=== PATIENT | female | born 1975 | race Caucasian/White ===

== ENCOUNTER → 2021-05-15 | Outpatient (CLI) | payer MEDICARE, OTHER ==
[2021-05-15 19:20] LABS: Basophils # (A) 0.03 X 10*3/uL (0.00-0.10); Basophils % (A) 0.5 %; Eosinophils # (A) 0.06 X 10*3/uL (0.04-0.35); Eosinophils % (A) 0.9 %; HCT 44.9 % (37.2-46.3); Lymphocytes % (A) 37.6 %; MCH 29.7 pg (27.0-32.0); MCHC 31.2 g/dL (32.0-37.0); MCV 95.1 fL (80.0-97.0); Mean Platelet Volume 11.8 fL (9.5-12.2); Monocytes # (A) 0.53 X 10*3/uL (0.20-1.00); Neutrophils # (A) 3.52 X 10*3/uL (1.80-7.70); Neutrophils % (A) 52.8 %; Platelet Count 213 X 10*3/uL (140-440); RBC 4.72 X 10*6/uL (4.10-5.20); RDW 12.7 % (11.5-14.5); WBC 6.65 X 10*3/uL (4.50-10.00)
[2021-05-16 00:18] LABS: Valproic Acid (Depakene) 53.7 ug/mL (50.0-100.0)
[2021-05-16 06:13] LABS: Levetiracetam (Keppra) 3.6 ug/mL (3.0-60.0)
[2021-05-16 07:08] LABS: Lamotrigine (Lamictal) 6.6 ug/mL (2.0-15.0)
[2021-05-19 08:09] LABS: Topiramate 3.1 ug/mL (2.0-20.0)
== END | disposition home or self-care (01) ==
LOC: LABWHC1 08:11
PROVIDERS: ATTEND Psychiatry & Neurology Neurology
DX: G40.209 Localization-related (focal) (partial) symptomatic epilepsy and epileptic syndromes with complex partial seizures, not intractable, without status epilepticus (principal)
CPT/HCPCS: 36415; 80164; 80175; 80177; 80201; 84450; 84460; 85025

== ENCOUNTER → 2022-02-11 | Outpatient (CLI) | payer MEDICARE, OTHER ==
[2022-02-11 14:30] LABS: Basophils # (A) 0.03 X 10*3/uL (0.00-0.10); Basophils % (A) 0.5 %; Eosinophils # (A) 0.05 X 10*3/uL (0.04-0.35); Eosinophils % (A) 0.8 %; Immature Grans, Automated 0.2 %; Lymphocytes # (A) 2.12 X 10*3/uL (0.90-5.00); Lymphocytes % (A) 32.5 %; MCH 28.6 pg (27.0-32.0); MCHC 31.1 g/dL (32.0-37.0); Mean Platelet Volume 11.8 fL (9.5-12.2); Monocytes # (A) 0.47 X 10*3/uL (0.20-1.00); Monocytes % (A) 7.2 %; NRBC Per 100 WBC 0 /100 WBCS (0.0-0.0); Neutrophils # (A) 3.84 X 10*3/uL (1.80-7.70); Neutrophils % (A) 58.8 %; Platelet Count 212 X 10*3/uL (140-440); RBC 4.89 X 10*6/uL (4.10-5.20); RDW 12.7 % (11.5-14.5); WBC 6.52 X 10*3/uL (4.50-10.00)
[2022-02-11 18:08] LABS: ALT 26 U/L (8-44); AST 13 U/L (13-35)
[2022-02-11 18:09] LABS: Chol/HDL Ratio 4.08 Ratio; LDL Cholesterol,Calculated 82.9 mg/dL (0.0-131.0)
[2022-02-11 18:17] LABS: Valproic Acid (Depakene) 39.1 ug/mL (50.0-100.0)
[2022-02-12 07:39] LABS: Levetiracetam (Keppra) 3.9 ug/mL (3.0-60.0)
[2022-02-12 07:41] LABS: Topiramate 2.5 ug/mL (2.0-20.0)
== END | disposition home or self-care (01) ==
LOC: LABWHC1 07:31
PROVIDERS: ATTEND Psychiatry & Neurology Neurology
DX: G40.209 Localization-related (focal) (partial) symptomatic epilepsy and epileptic syndromes with complex partial seizures, not intractable, without status epilepticus (principal)
CPT/HCPCS: 36415; 80061; 80164; 80177; 80201; 83036; 84443; 84450; 84460; 85025